=== PATIENT | male | born 1935 | race Caucasian/White ===

== ENCOUNTER 2020-09-30 17:41 | Emergency (ER) | payer OTHER ==
[~2020-09-30] VITALS: Ht 175.3 cm; Wt 65.8 kg
== END 2020-09-30 20:54 | disposition home or self-care (01) ==
LOC: ER 17:41
DX: S06.9X9A Unspecified intracranial injury with loss of consciousness of unspecified duration, initial encounter (principal); S01.111A Laceration without foreign body of right eyelid and periocular area, initial encounter; I10 Essential (primary) hypertension; W01.198A Fall on same level from slipping, tripping and stumbling with subsequent striking against other object, initial encounter
CPT/HCPCS: 12011; 70450; 90471; 90714; 99284-25

== ENCOUNTER → 2021-11-11 | Outpatient (CLI) | payer OTHER ==
[2021-11-11 17:52] LABS: Source, Urine Voided
[2021-11-11 19:00] LABS: Appearance, Urine Clear (Clear); Bilirubin, Urine Neg (Neg); Blood, Urine 1+ (Neg); Color, Urine Yellow (P-Yellow); Glucose Qualitative, Urine Neg (Neg); Ketones, Urine Neg (Neg); Leukocyte Esterase, Urine Neg (Neg); Nitrite, Urine Neg (Neg); Protein, Urine 3+ (Neg); Specific Gravity, Urine 1.025 (1.003-1.022); Urobilinogen, Urine NORM (Normal)
[2021-11-11 20:05] LABS: Bacteria Rare /hpf; Red Blood Cells, Urine 0-2 /hpf (0-2); Squamous Epithelial Cells Rare /hpf (Few); White Blood Cells, Urine 0-2 /hpf (0-5)
== END | disposition home or self-care (01) ==
LOC: LAB SHORT 14:45
PROVIDERS: Physician Assistant
DX: N39.0 Urinary tract infection, site not specified (principal)
CPT/HCPCS: 81001

== ENCOUNTER 2022-01-22 16:35 | Emergency (ER) | payer OTHER ==
[~2022-01-22] VITALS: Ht 172.7 cm; Wt 63.0 kg
[2022-01-22] MEDS ORDERED: ALLO100 PO (17:10)
[2022-01-22] MEDS ORDERED: ESCI10 PO (17:10)
[2022-01-22] MEDS ORDERED: RIVASTIGMINE1 EAC3 TD (17:10)
[2022-01-22] MEDS ORDERED: Lisinopril2.5 MG PO (17:10)
[2022-01-22] MEDS ORDERED: ELIQUIS2.5 M1 PO (17:10)
[2022-01-22] MEDS ORDERED: DILTIAZEM 24HR180 M3 PO (17:11)
[2022-01-22] MEDS ORDERED: EUTHYROX50 MC1 PO (17:11)
[2022-01-22] MEDS ORDERED: TRAM50 PO (19:03)
== END 2022-01-22 19:33 | disposition home or self-care (01) ==
LOC: ER 16:35
DX: S20.212A Contusion of left front wall of thorax, initial encounter (principal); G30.9 Alzheimer's disease, unspecified; F02.80 Dementia in other diseases classified elsewhere, unspecified severity, without behavioral disturbance, psychotic disturbance, mood disturbance, and anxiety; W17.89XA Other fall from one level to another, initial encounter; Y92.000 Kitchen of unspecified non-institutional (private) residence as the place of occurrence of the external cause; Z79.899 Other long term (current) drug therapy; Z79.01 Long term (current) use of anticoagulants
CPT/HCPCS: 71101; A9270

== ENCOUNTER 2022-03-11 04:50 | Inpatient (IN) | payer OTHER ==
[~2022-03-11] VITALS: Ht 175.3 cm; Wt 60.3 kg
[~2022-03-11 04:50] MED LIST: ALLO100 PO; DILTIAZEM 24HR180 M3 PO; ELIQUIS2.5 M1 PO; ESCI10 PO; EUTHYROX50 MC1 PO; Lisinopril2.5 MG PO; RIVASTIGMINE1 EAC3 TD; TRAM50 PO
[2022-03-11] MEDS ORDERED: HYDR1TAB94 PO (08:51)
[2022-03-11] MEDS ORDERED: Norco 5-325 Ta1 EACH PO (08:52)
[2022-03-11] MEDS ORDERED: ALLO300 PO (11:52)
[2022-03-11] MEDS ORDERED: DILT-XR120 M2 PO (11:55)
[2022-03-11] MEDS ORDERED: ESCI10 PO (11:55)
[2022-03-11 11:56] LABS: Influenza A, PCR NEGATIVE (NEGATIVE); Influenza B, PCR NEGATIVE (NEGATIVE); Resp Syncytial Virus, PCR NEGATIVE (NEGATIVE); SARS-Cov-2 (COVID-19) PCR, MMC NEGATIVE (NEGATIVE)
[2022-03-11] MEDS ORDERED: LEVSOD100 PO (11:56)
[2022-03-11] MEDS ORDERED: LISI20 PO (11:56)
[2022-03-11] MEDS ORDERED: ELIQUIS2.5 MG PO (11:57)
[2022-03-11] MEDS ORDERED: ACETAMINOPHEN500 MG PO (11:58)
[2022-03-11] MEDS ORDERED: TRAM50 PO (11:59)
[2022-03-11] MEDS ORDERED: ONDA4ODT MM (11:59)
[2022-03-11] MEDS ORDERED: EXELON1 EA11 TOP (12:00)
[2022-03-11 12:03] LABS: BASOPHILS ABSOLUTE AUTO 0.01 K/mm3 (0.00-0.23); BASOPHILS PERCENT AUTO 0 % (0-2); EOSINOPHILS ABSOLUTE AUTO 0.02 K/mm3 (0.00-0.68); EOSINOPHILS PERCENT AUTO 0 % (0-6); IMMATURE GRAN ABSOLUTE AUTO 0.06 K/mm3 (0.00-0.10); IMMATURE GRAN PERCENT AUTO 1 % (0-1); LYMPHOCYTES PERCENT AUTO 5 % (21-46); MONOCYTES ABSOLUTE AUTO 0.38 K/mm3 (0.16-1.47); MONOCYTES PERCENT AUTO 3 % (4-13); Mean Corpuscular HGB 34.4 pg (26.0-34.0); Mean Corpuscular HGB Conc 33.3 g/dL (31.5-36.5); Mean Corpuscular Volume 103 fL (80-100); Mean Platelet Volume 12.9 fL (9.1-12.4); NEUTROPHILS ABSOLUTE AUTO 10.49 K/mm3 (1.96-9.15); NEUTROPHILS PERCENT AUTO 91 % (41-73); Platelet Count 198 K/mm3 (150-400); RDW Coefficient Variation 14.3 % (11.7-14.2); RDW Standard Deviation 53.1 fL (35.1-46.3); Red Blood Cell Count 3.49 M/mm3 (4.30-5.90); White Blood Cell Count 11.56 K/mm3 (4.00-11.30)
[2022-03-11 12:18] LABS: Bun/Creatinine Ratio 17.9 (12.0-20.0); Calcium, Blood 9.5 mg/dL (8.5-10.1); Creatinine, Blood 1.06 mg/dL (0.60-1.20); Potassium, Blood 4.4 mmol/L (3.5-5.5)
--- NOTE | 2022-03-11 15:32 | NUR ---
pt was sitting up in bed and throwing up. spoke with dr. alcazar recieved orders to give zofran. administered to patient. denies nausea at this time. currently laying in bed with bed alarm on.
--- NOTE | 2022-03-11 16:56 | NUR ---
shift summary NO ACUTE CHANGES SINCE ARRIVAL TO FLOOR, PT REMAINS CONFUSED AND HAS BEEN ATTEMPTING TO GET OOB. BED ALARM ON AND PATIENT REMAINS EASY TO REORIENT. PLAN IS FOR SURGERY ON HIS HIP TOMORROW. WILL BE NPO AT MIDNIGHT.
[2022-03-11 17:18] LABS: International Normalized Ratio 1.12; Prothrombin Time Results 11.7 Sec (9.7-11.5)
--- NOTE | 2022-03-12 11:28 | NUR ---
PATIENT IS NOW LEAVING FOR PRE-OP.
--- NOTE | 2022-03-12 12:07 | NUR ---
PT TO DAY SURGERY VIA BED FOR HIP PINNING SURGERY W/DR SIDDIQUI. DAUGHTER PAL AT BEDSIDE. PT BP 146/120, PLACED ON 3LEAD MONITOR,HR 104-130'S AFIB RVR, DR PECK AT BEDSIDE FOR EVALUATION, NEW ORDERS PLACED HOWEVER PT DOES NOT HAVE IV ACCESS. ATTEMPT X2 WERE UNSUCCESSFUL, FRANCES MARR FROM PCU HERE TO PLACE POWERGLIDE PER VERBAL ORDER FROM DR PECK.
--- NOTE | 2022-03-12 14:24 | NUR ---
PATIENT JUST CAME BACK FROM PACU TODAY 03/12/22 AT 1424. POD 0 RIGHT HIP PINNING PATIENT IS DROWSY BUT IS EASILY AROUSABLE WITH TOUCH AND SAYING HIS NAME. PATIENTS BP IS ELEVATED BUT OTHERWISE HIS VS ARE WNL. PATIENT DENIES PAIN AT THIS TIME. RIGHT HIP HAS AN AQUACEL DRESSING THAT IS C/D/I. PATIENT IS ABLE TO MOVE FINGERS AND TOES WHEN ASKED. PATIENT IS TO BE TOE TOUCH WT BEARING WITH AMBULATION. CALL LIGHT IS WITHIN REACH. BED ALARM IS ON DUE TO HX OF DEMENTIA.
--- NOTE | 2022-03-12 15:11 | NUR ---
SHIFT SUMMARY: POD 0 RIGHT HIP PINNING NO SIGNIFICANT CHANGES SINCE POST OP. PATIENT IS DROWSY BUT EASILY AROUSABLE WITH TOUCH TO SAYING HIS NAME. PATIENT DENIES PAIN AT THIS TIME. RIGHT HIP HAS AN AQUACEL THAT IS C/D/I. HE CAN MOVE HIS FINGERS AND TOES WHEN ASKED. HE IS TO BE TOE TOUCH WT BEARING ON THE RIGHT HIP WHEN HE IS ABLE TO BE MORE AMBULATORY. PATIENT IS ABLE TO TOLERATE SMALL AMOUNTS OF PO INTAKE. PRIOR TO SURGERY PATIENT IS INCONTINENT BUT ATTENDS ARE IN PLACE AND ARE CHANGED PRN. PATIENT IS CURRENTLY ASLEEP IN BED WITH EVEN/EQUAL RESP. CALL LIGHT WITHIN REACH AND BED ALARM IS ON. THE PLAN IS TO HAVE PAIN MANAGED AND TO WORK WITH PT/OT TOMORROW WHEN HE IS LESS DROWSY.
--- NOTE | 2022-03-13 01:45 | NUR ---
TELE CALLED NURSING WHEN PT'S HR ELEVATED TO 170'S WITH EXERTION HE ATTEMPTED TO GET OOB WITH NEED TO URINATE. INCONTINENT VOID NOTED IN BRIEF. NEW BRIEF PLACED OPEN UNDER HIM AFTER CLEANING HIS NANCY AREA. URINAL PLACE WITHIN REACH, VOICES UNDERSTANDING WHEN NURSING REITERATED NEED TO USED CALLBELL TO CALL FOR HELP WHEN NEEDS ARISE. SAFETY MEASURES IN PLACE. WILL CONTINUE TO MONITOR FOR NEEDS OR WANTS.
[2022-03-13 06:06] LABS: BASOPHILS ABSOLUTE AUTO 0.01 K/mm3 (0.00-0.23); BASOPHILS PERCENT AUTO 0 % (0-2); EOSINOPHILS PERCENT AUTO 0 % (0-6); Hematocrit 29.5 % (37.0-53.0); Hemoglobin 9.9 g/dL (13.5-17.5); IMMATURE GRAN ABSOLUTE AUTO 0.07 K/mm3 (0.00-0.10); IMMATURE GRAN PERCENT AUTO 1 % (0-1); LYMPHOCYTES ABSOLUTE AUTO 0.51 K/mm3 (0.84-5.20); LYMPHOCYTES PERCENT AUTO 5 % (21-46); MONOCYTES ABSOLUTE AUTO 0.34 K/mm3 (0.16-1.47); MONOCYTES PERCENT AUTO 3 % (4-13); Mean Corpuscular HGB 34.6 pg (26.0-34.0); Mean Corpuscular HGB Conc 33.6 g/dL (31.5-36.5); Mean Corpuscular Volume 103 fL (80-100); Mean Platelet Volume 12.1 fL (9.1-12.4); NEUTROPHILS ABSOLUTE AUTO 9.47 K/mm3 (1.96-9.15); NEUTROPHILS PERCENT AUTO 91 % (41-73); NRBC ABSOLUTE 0.02 K/mm3 (0.00-0.02); NRBC Auto 0.2 /100 WBC (0.0-0.2); Platelet Count 203 K/mm3 (150-400); RDW Coefficient Variation 14.2 % (11.7-14.2); Red Blood Cell Count 2.86 M/mm3 (4.30-5.90)
[2022-03-13 06:30] LABS: Albumin, Blood 2.3 g/dL (3.4-5.0); Albumin/Globulin Ratio 0.6 (0.8-1.8); Bilirubin, Total 0.5 mg/dL (0.1-1.0); Bun/Creatinine Ratio 24.8 (12.0-20.0); Calcium, Blood 9.3 mg/dL (8.5-10.1); Creatinine, Blood 1.25 mg/dL (0.60-1.20); Globulin, Blood 3.8 g/dL (2.2-4.0); Potassium, Blood 4.6 mmol/L (3.5-5.5); Total Protein, Blood 6.1 g/dL (6.4-8.2)
--- NOTE | 2022-03-13 07:00 | NUR ---
recvd bedside report from previous shift [facility]. pt pleasant/cooperative, a/o to self, hx of dementia. bed in lowest position, bed rails up x 3, call light within reach. attends in place.
--- NOTE | 2022-03-13 07:49 | NUR ---
LYING IN SEMI FOWLERS WITH EYES CLOSED. PT REMAINS CONFUSED, BUT PLEASANT AND COOPERATIVE. HAS TRIED TO GET OOB MULTIPLE TIMES THIS SHIFT, BUT IS EASILY REDIRECTABLE. DENIES PAIN AND DISCOMFORT. RIGHT HIP DRESSING REPLACED AFTER PT REMOVED ORIGINAL. AREA CLEANED WITH CHG SCRUB FOR FOR MORE THAN 1 MINUTE BEFORE NOW AQUACEL PLACED. DENIES FURTHER NEEDS OR WANTS AT THIS TIME. SAFETY MEASURES IN PLACE. WILL CONTINUE TO MONITOR AND ADDRESS CHANGES THEY OCCUR.
--- NOTE | 2022-03-13 18:52 | NUR ---
SHIFT SUMMARY: VSS, NO ACUTE CHANGES, PT REMAINED A/O TO BASELINE, HX OF DEMENTIA, PLEASANT/COOPERATIVE. FAMILY VISITED PT APPROX 5 HR THIS SHIFT. PT TOLERATED PO INTAKE, NO N/V. PT APPEARED TO BE SLEEPING COMFORTABLY FOLLOWING FAMILY VISIT. R HIP SURGICAL INCISION WITH AQUACEL C/D/I. PT ATTEMPTS TO PULL AT LINES, TELEMETRY, R ARM IMMOBILIZER. REORIENTS EASILY AND PLEASANTLY.
--- NOTE | 2022-03-14 05:48 | NUR ---
LYING IN SEMI FOWLERS WITH EYES CLOSED. PT REMAINS PLEASANTLY CONFUSED AND COOPERATIVE WITH CARE. ABD BINDER PLACED TO ASSIST WITH HIDING TELE AND DIVERTING PT'S ATTENTION. DENIES PAIN AND DISCOMFORT. RIGHT HIP DRESSING IS C/D/I. DENIES FURTHER NEEDS OR WANTS AT THIS TIME. SAFETY MEASURES IN PLACE. WILL CONTINUE TO MONITOR AND ADDRESS CHANGES THEY OCCUR.
[2022-03-14 07:37] LABS: BASOPHILS ABSOLUTE AUTO 0.01 K/mm3 (0.00-0.23); BASOPHILS PERCENT AUTO 0 % (0-2); EOSINOPHILS ABSOLUTE AUTO 0.02 K/mm3 (0.00-0.68); EOSINOPHILS PERCENT AUTO 0 % (0-6); Hematocrit 26.3 % (37.0-53.0); Hemoglobin 9.1 g/dL (13.5-17.5); IMMATURE GRAN ABSOLUTE AUTO 0.06 K/mm3 (0.00-0.10); IMMATURE GRAN PERCENT AUTO 1 % (0-1); LYMPHOCYTES ABSOLUTE AUTO 0.78 K/mm3 (0.84-5.20); LYMPHOCYTES PERCENT AUTO 7 % (21-46); MONOCYTES ABSOLUTE AUTO 0.67 K/mm3 (0.16-1.47); MONOCYTES PERCENT AUTO 6 % (4-13); Mean Corpuscular HGB 35.3 pg (26.0-34.0); Mean Corpuscular HGB Conc 34.6 g/dL (31.5-36.5); Mean Corpuscular Volume 102 fL (80-100); Mean Platelet Volume 12.8 fL (9.1-12.4); NEUTROPHILS ABSOLUTE AUTO 9.08 K/mm3 (1.96-9.15); NEUTROPHILS PERCENT AUTO 86 % (41-73); NRBC ABSOLUTE 0.02 K/mm3 (0.00-0.02); NRBC Auto 0.2 /100 WBC (0.0-0.2); Platelet Count 204 K/mm3 (150-400); RDW Coefficient Variation 14.3 % (11.7-14.2); RDW Standard Deviation 52.4 fL (35.1-46.3); Red Blood Cell Count 2.58 M/mm3 (4.30-5.90); White Blood Cell Count 10.62 K/mm3 (4.00-11.30)
[2022-03-14 07:53] LABS: Albumin, Blood 2.2 g/dL (3.4-5.0); Albumin/Globulin Ratio 0.6 (0.8-1.8); Bilirubin, Total 0.4 mg/dL (0.1-1.0); Bun/Creatinine Ratio 31.1 (12.0-20.0); Calcium, Blood 9.1 mg/dL (8.5-10.1); Creatinine, Blood 1.32 mg/dL (0.60-1.20); Globulin, Blood 3.5 g/dL (2.2-4.0); Potassium, Blood 4.1 mmol/L (3.5-5.5); Total Protein, Blood 5.7 g/dL (6.4-8.2)
--- NOTE | 2022-03-14 08:20 | NUR ---
ELEVATED HR [employer] NOTIFIED THIS RN OF ELEVATED HR OF 120-150. PT ASYMPTOMATIC, BP ELEVATED. DR. DUTTA NOTIFIED. PER DR. DUTTA OK TO GIVE AM MEDICATION AND MONITOR THE PATIENT SINCE HE IS ASYMPTOMATIC. PER DR. DUTTA GIVE TIME FOR AM BP AND HR MEDICATIONS TO TAKE EFFECT BEFORE GIVING IV LOPRESSOR.
--- NOTE | 2022-03-14 10:00 | NUR ---
ELEVATED HR AND DECREASING BP VS RECHECKED AT 0941 HR 123 AND BP 123/101. PT WAS REPOSITIONED INTO SUPINE POSITION AND BP CUFF CHANGED TO UPPER ARM CUFF FOR A BETTER FIT, BP 101/86. HR SUSTAINING IN 120'S AT THAT TIME. DR. DUTTA WAS NOTIFIED OF SUSTAINED HR AND DECREASING BP. PER DR. DUTTA LOPRESSOR WAS NOT GIVEN. NS BOLUS STARTED AT 0959. LUNG SOUNDS CLEAR PRIOR TO START OF FLUID BOLUS. PT ASYMTPMATIC OF ELEVATED HR.
--- NOTE | 2022-03-14 12:00 | NUR ---
PT TOLERATED BOLUS WELL, AFTER BOLUS COMPLETED HR STILL AVERAGING 115-125 AND TOUCHING UP TO THE 130'S PER PERFORMANCE MANAGER. PT REMAINS ASYMPTOMATIC. DR. DUTTA NOTIFIED OF CONTINUED ELEVATED HR. AT THIS TIME DR. DUTTA CHANGED LOPRESSOR ORDER TO GIVE WA FOR HR SUSTAINED OVER 130 FOR 20 MINUTES.
--- NOTE | 2022-03-14 17:25 | NUR ---
ELEVATED HR PT'S HR HAS REMAINED ELEVATED T/O THE DAY, AT THIS TIME HR IS AVERAGING 115-120 PER SEAMUS MIGUELITO INSIDE SALES REPRESENTATIVE. PT REMAINS ASYMPTOMATIC. NORMAL SALINE STARTED FOR HYDRATION. WILL CONTINUE TO MONITOR.
[2022-03-14 17:56] LABS: BASOPHILS ABSOLUTE AUTO 0.01 K/mm3 (0.00-0.23); BASOPHILS PERCENT AUTO 0 % (0-2); EOSINOPHILS ABSOLUTE AUTO 0.08 K/mm3 (0.00-0.68); EOSINOPHILS PERCENT AUTO 1 % (0-6); Hematocrit 27.1 % (37.0-53.0); Hemoglobin 9.3 g/dL (13.5-17.5); IMMATURE GRAN ABSOLUTE AUTO 0.06 K/mm3 (0.00-0.10); IMMATURE GRAN PERCENT AUTO 1 % (0-1); LYMPHOCYTES ABSOLUTE AUTO 0.94 K/mm3 (0.84-5.20); LYMPHOCYTES PERCENT AUTO 9 % (21-46); MONOCYTES ABSOLUTE AUTO 0.79 K/mm3 (0.16-1.47); MONOCYTES PERCENT AUTO 8 % (4-13); Mean Corpuscular HGB 35.2 pg (26.0-34.0); Mean Corpuscular HGB Conc 34.3 g/dL (31.5-36.5); Mean Corpuscular Volume 103 fL (80-100); Mean Platelet Volume 12.3 fL (9.1-12.4); NEUTROPHILS ABSOLUTE AUTO 8.67 K/mm3 (1.96-9.15); NEUTROPHILS PERCENT AUTO 82 % (41-73); NRBC ABSOLUTE 0.04 K/mm3 (0.00-0.02); NRBC Auto 0.4 /100 WBC (0.0-0.2); Platelet Count 226 K/mm3 (150-400); RDW Coefficient Variation 14.5 % (11.7-14.2); Red Blood Cell Count 2.64 M/mm3 (4.30-5.90); White Blood Cell Count 10.55 K/mm3 (4.00-11.30)
--- NOTE | 2022-03-14 18:29 | NUR ---
2 SECOND PAUSE IN RHYTHM PER ALFONSO FARLEY ([employer]) PT HAD A 2 SECOND PAUSE IN HIS HEART RHYTHM AT APPROXIMATELY 1728. PT WAS ASYMPTOMATIC. BP 120/96. HEART RATE RANGING 107-130 WITH AVERAGE OF 115-120. CALL PLACED TO DR. DUTTA AND A MESSAGE WAS LEFT AT 1805, NO RETURN CALL BY 182, IRVIN RESENDEZ NOTIFIED. PER IRVIN NO FURTHER ACTION REQUIRED AT THIS TIME. WILL CONTINUE TO MONITOR UNTIL REPORT TO RENETTA MARR.
--- NOTE | 2022-03-14 19:47 | NUR ---
[employer] NOTIFIED THIS RN OF 2.18 SECOND PAUSE IN HEART RHYTHM. NOC RN LENA ANDREWS NOTIFIED.
--- NOTE | 2022-03-14 19:48 | NUR ---
SHIFT SUMMARY PT HAS BEEN CONFUSED T/O THE DAY, BED ALARM IN PLACE. PT HAS NEEDED REPOSITIONED T/O THE DAY, HE TOLERATES WELL. PT'S HR HAS BEEN ELEVATED T/O THE DAY (SEE PREVIOUS NOTES). ATTENDS IN PLACE, PT HAS BEEN INCONTINENT OF URINE. WILL MONITOR UNTIL REPORT TO NOC RN.
--- NOTE | 2022-03-15 04:59 | NUR ---
SHIFT SUMMARY A/O TO SELF AT TIMES, VERY PLEASANT AND COOPERATIVE W/ CARE. VITAL SIGNS STABLE. POD3- R HIP FIXATION, R SHOULDER FX NON SURGICAL. REMAINED BEDREST THROUGHOUT SHIFT. VOIDING WELL. LITTLE PAIN REPORTED-TYLENOL GIVEN. WILL CONTINUE TO MONITOR AND REPORT TO ONCOMING RN.
[2022-03-15 05:19] LABS: BASOPHILS ABSOLUTE AUTO 0.01 K/mm3 (0.00-0.23); BASOPHILS PERCENT AUTO 0 % (0-2); EOSINOPHILS ABSOLUTE AUTO 0.27 K/mm3 (0.00-0.68); EOSINOPHILS PERCENT AUTO 3 % (0-6); Hematocrit 29.9 % (37.0-53.0); Hemoglobin 10.1 g/dL (13.5-17.5); IMMATURE GRAN ABSOLUTE AUTO 0.06 K/mm3 (0.00-0.10); IMMATURE GRAN PERCENT AUTO 1 % (0-1); LYMPHOCYTES ABSOLUTE AUTO 1.22 K/mm3 (0.84-5.20); LYMPHOCYTES PERCENT AUTO 12 % (21-46); MONOCYTES ABSOLUTE AUTO 0.68 K/mm3 (0.16-1.47); MONOCYTES PERCENT AUTO 7 % (4-13); Mean Corpuscular HGB 34.8 pg (26.0-34.0); Mean Corpuscular HGB Conc 33.8 g/dL (31.5-36.5); Mean Corpuscular Volume 103 fL (80-100); Mean Platelet Volume 12.4 fL (9.1-12.4); NEUTROPHILS PERCENT AUTO 78 % (41-73); NRBC ABSOLUTE 0.03 K/mm3 (0.00-0.02); NRBC Auto 0.3 /100 WBC (0.0-0.2); Platelet Count 202 K/mm3 (150-400); RDW Coefficient Variation 14.5 % (11.7-14.2); RDW Standard Deviation 54.4 fL (35.1-46.3); White Blood Cell Count 10.04 K/mm3 (4.00-11.30)
[2022-03-15 05:44] LABS: Bun/Creatinine Ratio 32.1 (12.0-20.0); Creatinine, Blood 1.09 mg/dL (0.60-1.20); Potassium, Blood 4.1 mmol/L (3.5-5.5)
--- NOTE | 2022-03-15 08:42 | NUR ---
0815 ASSISTED OCCUPATIONAL THERAPY WITH REPOSITIONING PATIENT. PT DANGLING AT EOB. PT C/O DIZZINESS. THIS VOCATIONAL PSYCHOLOGIST CHECKED BLOOD PRESSURE. AT 0815 B/P: 154/134 PULSE 128, LEFT RADIAL WRIST. ASSISTED OCCUPATIONAL THERAPY TO REPOSITION PT BACK INTO BED. PT ABLE TO ROLL SIDE TO SIDE WITH ASSISTANCE TO STRAIGHTEN SHEETS AND GILES, FREE OF WRINKLES. OCCUPATIONAL THERAPY CONTINUED WORKING WITH PATIENT, SETTING UP BREAKFAST. THIS VOCATIONAL PSYCHOLOGIST RETURNED TO ROOM AT 0835 FOR A BLOOD PRESSURE RECHECK. 0835: BLOOD PRESSURE 133/112 PULSE 129 REPORTED BOTH SETS OF BLOOD PRESSURES/PULSE TO EMMA ERIC RN. PT IS CURRENTLY EATING BREAKFAST. BED IS IN LOWEST POSITION AND BED ALARM IS ON.
--- NOTE | 2022-03-15 17:57 | NUR ---
SHIFT SUMMARY: POD 3 RIGHT HIP PINNING PATIENT IS A&OX1-2 WITH A HX OF DEMENTIA. BED ALARM IS ON. PATIENTS RIGHT HIP HAS AN AQUACEL THAT IS C/D/I. DENIES NUMBNESS OR TINGLING. CAN MOVE ALL FINGERS AND TOES WHEN ASKED. HIS RIGHT SHOULDER IS SWOLLEN AND HAS A BRUISE DUE TO NON-SURGICAL FX AT THIS TIME THE PATIENT HAS HIS SLING ON THE RIGHT ARM. HE IS INCONTINENT AND IS HAVING HIS ATTENDS CHANGED PRN. HE IS TOLERATING SMALL AMOUNTS OF PO INTAKE. CALL LIGHT WITHIN REACH. THE PLAN IS TO HAVE PATIENT EVENTUALLY TRANSFERRED TO [place] AND FROM THERE BE TRANSFERRED TO THE [facility]. AWAITING FOR SNF BEDDING TO BE OPEN.
--- NOTE | 2022-03-16 04:20 | NUR ---
SUMMARY PT REMAINS PLESANTLY CONFUSED. NO ISSUES NOTED THIS SHIFT. PT RESTING IN NO DISTRESS. BED ALARM ON AND CALL LIGHT IN REACH.
[2022-03-16 05:31] LABS: Bun/Creatinine Ratio 29.8 (12.0-20.0); Creatinine, Blood 0.97 mg/dL (0.60-1.20)
--- NOTE | 2022-03-16 16:10 | NUR ---
SHIFT SUMMARY NO ACUTE CHANGES THIS SHIFT. PATIENT REMAINS CONFUSED, ORIENTED TO ONLY HIMSELF ANF FAMILY AT TIMES. POOR APPETITE, WILL EAT/DRINK WITH ENCOURAGEMENT. NO EVENTS ON TELE THIS SHIFT. BED ALARM IN PLACE. WILL REPORT TO ONCOMING RN.
[2022-03-16 16:51] LABS: Influenza A, PCR NEGATIVE (NEGATIVE); Influenza B, PCR NEGATIVE (NEGATIVE); Resp Syncytial Virus, PCR NEGATIVE (NEGATIVE); SARS-Cov-2 (COVID-19) PCR, MMC NEGATIVE (NEGATIVE)
[2022-03-16 17:35] LABS: BASOPHILS ABSOLUTE AUTO 0.01 K/mm3 (0.00-0.23); BASOPHILS PERCENT AUTO 0 % (0-2); EOSINOPHILS ABSOLUTE AUTO 0.07 K/mm3 (0.00-0.68); EOSINOPHILS PERCENT AUTO 1 % (0-6); Hematocrit 26.1 % (37.0-53.0); Hemoglobin 8.8 g/dL (13.5-17.5); IMMATURE GRAN ABSOLUTE AUTO 0.06 K/mm3 (0.00-0.10); IMMATURE GRAN PERCENT AUTO 1 % (0-1); LYMPHOCYTES ABSOLUTE AUTO 0.86 K/mm3 (0.84-5.20); LYMPHOCYTES PERCENT AUTO 8 % (21-46); MONOCYTES ABSOLUTE AUTO 0.91 K/mm3 (0.16-1.47); MONOCYTES PERCENT AUTO 9 % (4-13); Mean Corpuscular HGB 34.5 pg (26.0-34.0); Mean Corpuscular HGB Conc 33.7 g/dL (31.5-36.5); Mean Corpuscular Volume 102 fL (80-100); Mean Platelet Volume 12.2 fL (9.1-12.4); NEUTROPHILS ABSOLUTE AUTO 8.47 K/mm3 (1.96-9.15); NEUTROPHILS PERCENT AUTO 82 % (41-73); NRBC ABSOLUTE 0.04 K/mm3 (0.00-0.02); NRBC Auto 0.4 /100 WBC (0.0-0.2); Platelet Count 237 K/mm3 (150-400); RDW Coefficient Variation 14.5 % (11.7-14.2); RDW Standard Deviation 53.1 fL (35.1-46.3); Red Blood Cell Count 2.55 M/mm3 (4.30-5.90); White Blood Cell Count 10.38 K/mm3 (4.00-11.30)
--- NOTE | 2022-03-16 18:48 | NUR ---
ATTEMPTED TO CALL REPORT TO JOE MONTENEGRO AT 1815 AND AGAIN AT 1845, NO ANSWER - PHONE RINGS AND RINGS AND RINGS.
== END 2022-03-16 19:50 | DRG 481 ==
LOC: ER 04:50 → SURS 04:51
PROVIDERS: Emergency Medicine; Internal Medicine; Orthopaedic Surgery; ADMIT Family Medicine
PROC: 0QS634Z Reposition Right Upper Femur with Internal Fixation Device, Percutaneous Approach (ICD-10-PCS; 2022-03-12)
PROC: 2W3AX1Z Immobilization of Right Upper Arm using Splint (ICD-10-PCS; principal; 2022-03-12 12:00)
DX: S72.011A Unspecified intracapsular fracture of right femur, initial encounter for closed fracture (principal); S42.291A Other displaced fracture of upper end of right humerus, initial encounter for closed fracture; Z20.822 Contact with and (suspected) exposure to COVID-19; I12.9 Hypertensive chronic kidney disease with stage 1 through stage 4 chronic kidney disease, or unspecified chronic kidney disease; N18.30 Chronic kidney disease, stage 3 unspecified; E03.9 Hypothyroidism, unspecified; M21.051 Valgus deformity, not elsewhere classified, right hip; E78.5 Hyperlipidemia, unspecified; I49.5 Sick sinus syndrome; G30.9 Alzheimer's disease, unspecified; F02.80 Dementia in other diseases classified elsewhere, unspecified severity, without behavioral disturbance, psychotic disturbance, mood disturbance, and anxiety; F32.9 Major depressive disorder, single episode, unspecified; I48.91 Unspecified atrial fibrillation; M10.9 Gout, unspecified; N40.0 Benign prostatic hyperplasia without lower urinary tract symptoms; Z79.01 Long term (current) use of anticoagulants; Z79.899 Other long term (current) drug therapy; W01.198A Fall on same level from slipping, tripping and stumbling with subsequent striking against other object, initial encounter
CPT/HCPCS: 0241U; 29105; 36415; 70450; 73030; 73060; 73502; 80048; 80053; 85025; 85610; 85730; 93005; 93010; 94760; 97110; 97162; 97166; 97530; 99285-25; A9270; C1713; C1751; C1769; J0690; J1100; J1650; J2370; J2405; J2704; J2795; J3010; J7030; J7040; J7120